=== PATIENT | female | born 1995 | race African-American/Black ===

== ENCOUNTER 2022-06-02 16:04 | Outpatient (CLI) | payer MEDICAID, SELFPAY ==
[2022-06-02 23:27] LABS: Chlamydia DNA Amplified* NOT DETECTED (No Detected); GC DNA Amplified* NOT DETECTED (No Detected)
== END 2022-06-02 16:05 | disposition home or self-care (01) ==
PROVIDERS: PCP Family Medicine; Visit Provider Family Medicine
DX: Z11.3 Encounter for screening for infections with a predominantly sexual mode of transmission (principal); Z12.4 Encounter for screening for malignant neoplasm of cervix
CPT/HCPCS: 87491; 87591; 87624; 88175

== ENCOUNTER 2022-09-21 13:05 | Outpatient (CLI) | payer MEDICAID, SELFPAY ==
[2022-09-22 13:12] LABS: Strep A DNA Probe* Not Detected (Not Detectd)
== END 2022-09-21 13:06 | disposition home or self-care (01) ==
LOC: NFLDUCREF 13:28
PROVIDERS: PCP Family Medicine; Visit Provider Family Medicine
DX: U07.1 COVID-19 (principal); J02.9 Acute pharyngitis, unspecified
CPT/HCPCS: 87651

== ENCOUNTER 2023-06-05 08:45 | Outpatient (RCR) | payer MEDICAID, SELFPAY ==
--- NOTE | 2023-04-19 09:09 | PT.OPE ---
[facility] Outpatient Eval Start: 04/18/23 08:31 Freq: Status: Active Protocol: Document 04/18/23 08:31 HN (Rec: 04/18/23 12:47 HN [id number]) E-signed By Eduarda Carcamo DPT Physical Therapy Outpatient Evaluation Insurance Information Recert Due Date 07/16/23 Insurance Name Medicaid Insurance Information/Comments [facility] Medicaid Plan Medical Diagnosis Anesthesia of the skin R20. 0. Treating Diagnosis Low back pain with L sided sciatica M54.42 Referring MD Amber Murphy MD Subjective Subjective Patient is a 28 year old female with L foot numbness and back pain. Patient reports symptoms are intermittent but was worse with wearing high heels worse with lying flat and waking up in the morning. Numbness and tingling is typically 3rd and 4th toes on L. Duration: Intermittent for past year Pain characteristics: tingling and numbness in L foot, some pain in low back Aggravating factors: lying flat, sitting, wearing heels Easing Factors: denies any relieving factors, feels better wearing slides at home Prior level of function: unlimited and independent with all ADLs and IADLs Current limitations: sitting and standing for prolonged periods of time, waking in morning with significant numbness Red flags: denies hx of cancer, recent infection, numbness/tingling, bowel/ bladder changes Imaging: denies receiving any imaging thus far PMH: migraines, unremarkable, has history of low back pain Social History: 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, 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, 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[employer], Enjoys crafting, hiking, has dog, lives with spouse, has stairs at home, denies issues with home navigation Current Work Status [employer] 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, 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 Preferred Name Reena Objective Other/Pertinent Objective Lumbar range of motion (% full range of motion) Flexion: 100% Extension: 75% Left sidebendin% Right sidebendin% Left rotation: 100% Right rotation: 100% Repeated extension: pain in back, no change in toe numbness Repeated flexion: pain in back and weirdness in toes Hip range of motion (degrees): WNL Manual muscle testing: Hip flexion: 5/5 L , 5/5 R Hip abduction: 5/5 L , 5/5 R Hip adduction: 4/5 L , 5/5 R Hip extension: 4/5 L , 5/5 R Knee extension: 5/5 L , 5/5 R Knee flexion: 5/5 L , 5/5 R Ankle DF: 4/5 on L, 5/5 on R Ankle PF: 5/5 Special tests: Slump: + positive on L , negative on R Straight leg raise: + positive on L , negative on R Sensation/Reflexes: denies any changes in sensation Palpation: reproduction of symptoms with T12-/L1 and L5/ S1 central PA mobilizations Assessment Assessment/Impression Patient is a 28 year old with complaints of low back pain and intermittent left foot numbness. Patient demonstrates impaired lumbar range of motion, mild decreased in glute and core strength, + Slump and straight leg raise, and reproduction of symptoms with central PA mobilization consistent with lumbar radicular pain. The impairments impact the patients tolerance with sitting and standing for prolonged periods of time, walking and restful sleep. Patient will benefit from skilled physical therapy to address the impairments and activity limitations listed above. Prognostic factors include patient's young age, no comorbidities, and low irritability of symptoms. 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 Patient will tolerate sitting 2 hours with no increase in pain order to complete IADLs including work related tasks 2. Patient will report <3 instances of numbness in L foot per week to demonstrate decreased pain and disability related to symptoms 3. Patient will demonstrate independence with HEP in order to manage symptoms independently at home 4. Patient will demonstrate full pain-free lumbar range of motion in order to complete ADLs and IADLs with no increase in pain. 5. Patient will report no increased numbness and tingling when waking from sleep in order to demonstrate decrease pain and disability related to symptoms. 6. Patient will demonstrate MMT of 5/5 in hip and LE in order to demonstrate improved tolerance with lifting, carrying groceries. Coordination/Communication With Referral Source Treatment Plan/Direct Interventions Electrical Stimulation,Ice/ Cold/Vasopneumatic,Joint Mobilization,Manual Therapy, Neuromuscular Re-ed,Self-Care/ Home Management,Therapeutic Activities,Therapeutic Exercises,Traction (Mechanical ) Frequency/Duration 1x/week for 8-12 weeks with decreasing frequency as tolerated Patient Will Be Discharged From Therapy Completion of LTG(s),Skills Plateau,Independent w/HEP Evaluation Billing Untimed Code Treatment Minutes 18 Complexity Low Certification Information Initial Certification Date 04/18/23 Ending Certification Date 07/16/23 Provider Signature Shows Agreement With POC & Medical Necessity Physician Signature & Date Requested Please Sign/Date Here Physician Comment/Change : Physician NPI Number #
== END 2023-06-20 11:11 | disposition home or self-care (01) ==
PROVIDERS: PCP Family Medicine; Visit Provider Family Medicine
DX: R20.0 Anesthesia of skin (principal); M54.42 Lumbago with sciatica, left side; Z51.89 Encounter for other specified aftercare
CPT/HCPCS: 97110; 97140; 97161

== ENCOUNTER 2025-07-29 09:49 | Outpatient (CLI) | payer OTHER, SELFPAY ==
[2025-08-01 17:56] LABS: HPV Source Endocervical
[2025-08-04 10:23] LABS: Pap Test Digital Imaging Done
== END 2025-07-29 09:50 | disposition home or self-care (01) ==
PROVIDERS: PCP Family Medicine; Visit Provider Family Medicine
DX: Z00.00 Encounter for general adult medical examination without abnormal findings (principal); Z12.4 Encounter for screening for malignant neoplasm of cervix
CPT/HCPCS: 80053; 80061; 86803; 87624; 87625; 88141; 88142; 88175